=== PATIENT | male | born 1960 | race Caucasian/White ===

== ENCOUNTER 2020-04-05 12:41 | Outpatient (REF) | payer BC, SELFPAY ==
--- NOTE | 2020-04-05 12:59 | XR_ITS ---
EXAMINATION: XR LUMBAR SPINE XR HIP, RIGHT CLINICAL INFORMATION: Low back pain. COMPARISON: None TECHNIQUE: Lumbar spine 3 views. Right hip 2 views. FINDINGS: LUMBAR SPINE: There is normal lumbar lordosis. There is grade 1 anterolisthesis L4 over L5. Rest of vertebral alignment is normal. Loss of L5-S1 disc height. Rest of the disc heights are normal. No visible acute fracture, dislocation or lytic process seen. There is mild bilateral narrowing of L4-L5 facet joint arthropathy. The paravertebral soft tissues are normal. RIGHT HIP: No visible acute fracture, dislocation or lytic process seen. The soft tissues are normal. IMPRESSION: Grade 1 anterolisthesis L4 over L5. Degenerative disc changes L5-S1 disc level. Bilateral L4-L5 facet joint arthropathy and hypertrophy. No visible acute fracture, dislocation or lytic process seen in right hip.
== END 2020-04-05 12:42 | disposition home or self-care (01) ==
LOC: HO.XRAY 12:41
PROVIDERS: PCP Internal Medicine; Visit Provider Internal Medicine
DX: M54.89 Other dorsalgia (principal)
CPT/HCPCS: 72100; 73502

== ENCOUNTER 2020-04-08 13:11 | Emergency (ER) | payer BC, SELFPAY ==
[2020-04-08 15:24] VITALS: BP 160/85; PULSE 63; RESP 18; TEMP 37.7; O2SAT 97; BMI 27.8
--- NOTE | 2020-04-08 15:56 | ED_ITS ---
HPI - Extremity Injury (Lower) General Chief Complaint: Extremity Injury, Lower Stated Complaint: pain rt hip Time Seen by Provider: 04/08/20 15:14 Source: patient Mode of arrival: ambulatory Limitations: no limitations History of Present Illness HPI Narrative: 59 yo male here with right hip pain x 1 week. Seen at urgent care last week and given prednisone which he took with no relief. Followed up with PCP last wednesday and had x-rays which patient does not know results of. Today continued pain. No injury or trauma. Pain worsened with walking and weight bearing. Onset (ago): week(s) Injury: Right: hip Type of Injury: other (no injury ) Place: other (NA) Severity: moderate Relieving factors: NSAID and other (some relief with motrin) Exacerbating factors: weight bearing and movement Other symptoms: none Related Data Previous Rx's Medication Instructions Recorded cyclobenzaprine 10 mg PO Q8H PRN #20 tab 04/08/20 hydrocodone-acetaminophen [Vicodin 1 tab PO Q6H PRN #10 tab 04/08/20 HP] naproxen 500 mg PO BID #20 tab 04/08/20 Allergies Allergy/AdvReac Type Severity Reaction Status Date / Time No Known Allergies Allergy Verified 04/08/20 15:55 Review of Systems Review of Systems: Yes all other systems are reviewed and are negative Constitutional: Constitutional: Reports no additional constitutional co mplaints, Denies chills, Denies fever(s) and Denies weakness Eyes: Eyes: Reports no additional eye complaints and Denies change in vision ENT: Reports system reviewed and no additional complaints, except as documented, Denies nasal congestion and Denies nasal discharge Cardiovascular: Cardiovascular: Reports no additional cardiovascular complaints, Denies chest pain, Denies leg edema and Denies dyspnea Respiratory: Respiratory: Reports no additional respiratory complaints, Denies cough and Denies dyspnea Gastrointestinal: Gastrointestinal: Reports no additional gastrointestinal complaints, Denies abdominal pain, Denies diarrhea, Denies nausea and Denies vomiting Genitourinary: Genitourinary: Reports no additional male genitourinary complaints and Denies urinary incontinence Musculoskeletal: Musculoskeletal: Reports no additional musculoskeletal complaints, Denies back pain, Reports arthralgias, Denies joint swelling, Denies limited range of motion, Denies numbness, Denies stiffness and Denies tingling Integumentary/Breasts: Skin/Breast: Reports system reviewed and no additional complaints, except as docu and Denies rash Neurologic: Reports system reviewed and no additional complaints, except as documented, Denies Abnormal speech present, Denies focal weakness, Denies numbness, Denies Sensory deficit (Neuro), Denies tingling, Denies paresthesias and Denies weakness PMFSH Past Medical History Attestation statement: The following information was validated with the patient. Source: obtained from family and nursing notes reviewed Medical History No known health problems No known health problems Social History Social History Alcohol intake: current Alcohol intake frequency: holidays/special occasions only Smoking Status: Current every day smoker Use of substances other than those prescribed or required for medical reasons: No Advance Directives: No Advance Directives Information Provided: No Physical Exam Vital Signs and I&O and Narrative: Vital Signs and I&O: Vital Signs Temp 99.8 F 04/08/20 15:24 Pulse 63 04/08/20 15:24 Resp 18 04/08/20 15:24 BP 160/85 H 04/08/20 15:24 Pulse Ox 97 04/08/20 15:24 Intake & Output 04/07/20 04/08/20 04/08/20 18:59 06:59 18:59 Weight 90.718 kg Body Mass Index 27.8 Const: General: cooperative, healthy appearing, comfortable and no acute distress Orientation/consciousness: patient oriented x3 Limitations: no limitations HENMT: Head: Yes normal to inspection Ears: hearing grossly normal bilaterally General nose exam: Normal external nose present Face and sinus: Yes normal facial exam Mouth: Normal oral and palatal mucosa present Throat: Yes posterior oropharynx normal Eyes: General: appearance normal, both eyes and all related structures Pupils: Equal, round and reactive pupils present Neck: Neck: Yes normal visual inspection Chest: Chest palpation & inspection: normal inspection of the chest Resp: Effort & Inspection: normal respiratory effort Auscultation: clear to auscultation bilaterally Cardio: Palpation: normal PMI Rate: regular rate Rhythm: regular rhythm Peripheral pulses: Peripheral pulses 2+ throughout GI: Inspection: Yes normal to inspection Palpation (GI): Soft to palpation and nontender Auscultation: normal bowel sounds Back/Spine/Pelvis: Thoracic/Lumbar Spine: thoracic and lumbar spine normal to inspection, thoraco-lumbar ROM normal, No pain with thoraco-lumbar ROM, No paraspinal muscle tenderness, No thoraco-lumbar ROM limited, No thoracic spinal tenderness, No lumbar spinal tenderness and No straight leg raise positive Pelvis: Other pelvic findings (Pain over the lateral right hip. FROM) Skin: General skin exam: no rashes or lesions noted Neuro: General: patient oriented x3, gait normal, Normal light touch and pain sensation and normal sensation to monofilament Cranial nerves: Yes Equal, round and reactive pupils present Speech: No Abnormal speech present Gait exam (Neuro): Normal gait present Motor exam (neuro): 5/5 motor strength present throughout and Motor abnormalities not present Sensory Exam: Normal double simultaneous stimulation for sensation; No Sensory deficit (Neuro) Extrem: General: Yes normal to inspection MDM - Extremity Injury (Lower) MDM Narrative Medical decision making narrative: Pt here with atraumatic right hip pain. On exam has pain more over the lateral right hip with FROM. Reviewed images from 04/05 from outpatient of hip/lumbar spine. Unremarkable. Patient medicated with toradol IM with improvement. Likely arthritis vs bursitis. Offered home care with supportive care, follow-up with orthopedics and PCP. Reviewed worrisome signs/symptoms with patient and when to rerturn to ED. Comfortable with discharge home. Imaging Data lumbar xray from 04/05: Radiologist's impression: TECHNIQUE: Lumbar spine 3 views. Right hip 2 views. FINDINGS: LUMBAR SPINE: There is normal lumbar lordosis. There is grade 1 anterolisthesis L4 over L5. Rest of vertebral alignment is normal. Loss of L5-S1 disc height. Rest of the disc heights are normal. No visible acute fracture, dislocation or lytic process seen. There is mild bilateral narrowing of L4-L5 facet joint arthropathy. The paravertebral soft tissues are normal. RIGHT HIP: No visible acute fracture, dislocation or lytic process seen. The soft tissues are normal. IMPRESSION: Grade 1 anterolisthesis L4 over L5. Degenerative disc changes L5-S1 disc level. Bilateral L4-L5 facet joint arthropathy and hypertrophy. No visible acute fracture, dislocation or lytic process seen in right hip. TECHNIQUE: Lumbar spine 3 views. Right hip 2 views. FINDINGS: LUMBAR SPINE: There is normal lumbar lordosis. There is grade 1 anterolisthesis L4 over L5. Rest of vertebral alignment is normal. Loss of L5-S1 disc height. Rest of the disc heights are normal. No visible acute fracture, dislocation or lytic process seen. There is mild bilateral narrowing of L4-L5 facet joint arthropathy. The paravertebral soft tissues are normal. RIGHT HIP: No visible acute fracture, dislocation or lytic process seen. The soft tissues are normal. IMPRESSION: Grade 1 anterolisthesis L4 over L5. Degenerative disc changes L5-S1 disc level. Bilateral L4-L5 facet joint arthropathy and hypertrophy. No visible acute fracture, dislocation or lytic process seen in right hip. Discharge Plan Discharge Clinical Impression: Bursitis Qualifiers: Bursitis location: hip Hip bursitis location: unspecified Laterality: right Qualified Code(s): M70.71 - Other bursitis of hip, right hip Patient Disposition: Home, Self-Care Instructions: Hip Bursitis (ED) Additional Instructions: Heat or ice gentle stretching follow-up with orthopedics as discussed Prescriptions: New cyclobenzaprine 10 mg tablet 10 mg PO Q8H PRN (Reason: muscle spasm) Qty: 20 RF: 0 naproxen 500 mg tablet 500 mg PO BID Qty: 20 RF: 0 hydrocodone-acetaminophen [Vicodin HP] 10-300 mg tablet 1 tab PO Q6H PRN (Reason: pain) Qty: 10 RF: 0 Referrals: Jevon Vicente MD [Physician] - 5 days Stand Alone Forms: Work/School Release
[2020-04-08] MEDS: Ketorolac Tromethamine 60 MG/2 ML VIAL IM (16:16)
== END 2020-04-08 16:53 | disposition home or self-care (01) ==
PROVIDERS: Emergency Provider Internal Medicine; PCP Internal Medicine
DX: M70.71 Other bursitis of hip, right hip (principal); F17.200 Nicotine dependence, unspecified, uncomplicated; Z71.6 Tobacco abuse counseling
CPT/HCPCS: 99283; J1885

== ENCOUNTER 2023-09-07 08:43 | Outpatient (REF) | payer SELFPAY ==
[2023-09-07 14:17] LABS: MANUAL DIFF FLAG NO
[2023-09-07 14:22] LABS: Basophils Absolute Auto 0.1 X10*3/uL (0.0-0.2); Basophils Percent Auto 1.1 % (0-2); Eosinophils Absolute Auto 0.2 X10*3/uL (0.0-0.4); Eosinophils Percent Auto 2.7 % (0-4); Hematocrit 46.3 % (42.0-52.0); Hemoglobin 15.6 g/dl (14.0-18.0); Imm Gran Abs Auto 0.02 X10*3/uL (0.00-0.03); Imm Gran Pct Auto 0.3 % (0.0-0.4); Lymphocytes Absolute Auto 1.8 X10*3/uL (1.2-4.9); Lymphocytes Percent Auto 27.3 % (20-40); Mean Corpuscular HGB Conc 33.7 g/dl (31.0-36.0); Mean Corpuscular Hemoglobin 32.4 pg (27.0-33.0); Mean Corpuscular Volume 96.3 fL (80.0-98.0); Monocytes Absolute Auto 0.6 X10*3/uL (0.1-1.2); Monocytes Percent Auto 9.5 % (2-11); Neutrophils Absolute Auto 3.9 x10*3/uL (2.0-8.3); Neutrophils Percent Auto 59.1 % (45-73); Platelet Count 184 X10*3/uL (160-400); Red Blood Count 4.81 X10*6/uL (4.60-5.80); Red Cell Distribution Width 11.9 % (11.0-16.0); White Blood Count 6.6 X10*3/uL (4.8-10.8)
[2023-09-07 17:25] LABS: TSH reflex Free T4 1.11 uIU/mL (0.32-4.0)
[2023-09-07 17:49] LABS: Alanine Aminotransferase 28 U/L (0-40); Albumin Level 4.2 g/dL (3.5-5.0); Alkaline Phosphatase 59 U/L (39-117); Anion Gap 13 (12-20); Aspartate Amino Transferase 22 U/L (5-37); Bilirubin Total 0.4 mg/dL (0.0-1.0); Blood Urea Nitrogen 17 mg/dL (9-16); Calcium 9.3 mg/dL (8.4-10.2); Carbon Dioxide 28 mmol/L (22-29); Chloride 105 mmol/L (96-108); Cholesterol 174 mg/dL (<200); Estimated Glomerular Filt Rate > 60; Glucose Random 49 mg/dL (60-115); HDL Cholesterol 45 mg/dL (>40); LDL Cholesterol Calculated 105 mg/dL (<100); Potassium 3.8 mmol/L (3.3-5.1); Sodium 142 mmol/L (135-145); Total Protein 6.9 g/dL (6.5-8.0); Triglycerides 123 mg/dL (<150)
== END 2023-09-07 08:44 | disposition home or self-care (01) ==
LOC: HO.CHCLDS 08:43
PROVIDERS: Visit Provider Internal Medicine
DX: K21.9 Gastro-esophageal reflux disease without esophagitis (principal); E78.2 Mixed hyperlipidemia; I10 Essential (primary) hypertension
CPT/HCPCS: 36415; 80053; 80061; 84443; 85025

== ENCOUNTER 2023-12-06 15:16 | Outpatient (REF) | payer SELFPAY ==
--- NOTE | ~2023-12-06 | XR_ITS ---
EXAMINATION: XR KNEE, RIGHT CLINICAL INFORMATION: Right knee pain after a fall Patient fell 8 months ago, recent pain in right knee with no new injury COMPARISON: None available. TECHNIQUE: 3 views of the right knee. FINDINGS: No fracture or joint effusion. Alignment is anatomic. Joint spaces are maintained. Small marginal osteophytes involve the patellofemoral joint. Vascular calcifications are seen. No abnormal soft tissue calcification. XR/XR knee RT 3V IMPRESSION: No acute bony abnormality.
== END 2023-12-06 15:17 | disposition home or self-care (01) ==
LOC: HO.XRAY 15:16
PROVIDERS: PCP Internal Medicine; Visit Provider Internal Medicine
DX: M25.561 Pain in right knee (principal); G89.29 Other chronic pain
CPT/HCPCS: 73562